=== PATIENT | male | born 1975 | race Caucasian/White ===

== ENCOUNTER 2024-02-17 16:00 | Outpatient (CLI) | payer BC | END 2024-02-17 16:01 | disposition home or self-care (01) | LOC: CSHSLEEP 16:00 | PROVIDERS: ATTEND Family Medicine Sports Medicine | DX: G47.33 Obstructive sleep apnea (adult) (pediatric) (principal); R09.89 Other specified symptoms and signs involving the circulatory and respiratory systems; F32.A Depression, unspecified; E11.9 Type 2 diabetes mellitus without complications; E66.9 Obesity, unspecified; Z68.35 Body mass index [BMI] 35.0-35.9, adult; R06.83 Snoring; I10 Essential (primary) hypertension | CPT/HCPCS: 95811 ==